=== PATIENT | male | born 1955 | race Caucasian/White ===

== ENCOUNTER 2017-04-12 16:30 | Emergency (ER) | payer MEDICAID, MEDICARE ==
[~2017-04-12] VITALS: Ht 172.7 cm; Wt 65.9 kg
[2017-04-12 19:58] VITALS: BP 125/77
== END 2017-04-12 21:07 | disposition left against medical advice (07) ==
LOC: EMS 16:32
DX: S62.391A Other fracture of second metacarpal bone, left hand, initial encounter for closed fracture (principal); V13.0XXA Pedal cycle driver injured in collision with car, pick-up truck or van in nontraffic accident, initial encounter; Y93.55 Activity, bike riding; Y92.89 Other specified places as the place of occurrence of the external cause; Y99.8 Other external cause status
CPT/HCPCS: 99284